=== PATIENT | female | born 1965 | race Caucasian/White ===

== ENCOUNTER 2024-08-18 09:32 | Day surgery (SDC) | payer BC ==
[2024-08-18] MEDS: Lactated Ringers 1,000 ML IV SCH (09:50)
[2024-08-18] MEDS ORDERED: Propofol 200 MG/20 ML SDV ONE ×2 (10:11→10:44)
[2024-08-18] MEDS ORDERED: fentaNYL 50 MCG/ML SDV ONE (10:11)
[2024-08-18] MEDS ORDERED: Midazolam 1 MG/ML 2 ML SDV ONE (10:11)
== END 2024-08-18 12:13 | disposition home or self-care (01) ==
LOC: JP.SDS 09:32
PROVIDERS: ATTEND Surgery
DX: Z12.11 Encounter for screening for malignant neoplasm of colon (principal)
CPT/HCPCS: 45378; J2250; J2704; J3010; J7120